=== PATIENT | male | born 1955 | race Caucasian/White ===

== ENCOUNTER 2019-09-20 07:44 | Day surgery (SDC) | payer OTHER ==
[2019-09-16 14:47] LABS: Absolute Lymphocytes (CBC) 2.8 K/uL (0.7-4.9); Basophils % 1.1 % (0-1.3); Hematocrit 47.9 % (39.6-49.0); Lymphocytes % 27.7 % (15.3-44.8); RBC Red Blood Cell Count 5.25 M/uL (4.33-5.43)
[2019-09-16 15:06] LABS: Potassium 4.6 mmol/L (3.5-5.1)
--- NOTE | 2019-09-16 15:35 | RAD REPORT ---
EXAM DESCRIPTION: Hellen Guerra And Kelly (2 Views)09/16/2019 3:06 pm CLINICAL HISTORY: Preop for cardiac catheterization. History chest pain COMPARISON: 2017 FINDINGS: The lungs appear clear of acute infiltrate. The heart is normal size IMPRESSION: No acute abnormalities displayed
[2019-09-20] MEDS ORDERED: NA CHLORIDE 0.9% 500 ML ONE (07:55)
[2019-09-20 08:08] VITALS: TEMP 97.7
[2019-09-20] MEDS ORDERED: NA CHLORIDE 0.9% 0 ML ONE (10:02)
[2019-09-20] MEDS ORDERED: FENTANYL CITR 100 MCG/2 ML ONE (10:02)
[2019-09-20] MEDS ORDERED: MIDAZOLAM HCL 2 MG/2 ML INJ ONE (10:02)
[2019-09-20] MEDS ORDERED: ATROPINE SULF 1 MG/10 ML SYR IV ONE (10:02)
[2019-09-20] MEDS ORDERED: HEPA 1000U/500MLS 1,000 UNIT/500 ML BAG IV ONE (10:04)
[2019-09-20 12:17] VITALS: BP 121/66
[2019-09-20 12:22] VITALS: O2SAT 99
== END 2019-09-20 12:30 | disposition home or self-care (01) ==
LOC: CCL 07:44
DX: I25.10 Atherosclerotic heart disease of native coronary artery without angina pectoris (principal); I10 Essential (primary) hypertension; E78.5 Hyperlipidemia, unspecified; F17.210 Nicotine dependence, cigarettes, uncomplicated; Z82.49 Family history of ischemic heart disease and other diseases of the circulatory system
CPT/HCPCS: 85025; 80048; 36415; 85610; 85730; 71046; 93454; C1893; C1760; J2250; J3010; J7040; J0583

== ENCOUNTER 2019-11-23 18:27 | Emergency (ER) | payer OTHER ==
[2019-11-23 19:48] LABS: Basophils % 1.2 % (0-1.3); Hematocrit 39.7 % (39.6-49.0); Lymphocytes % 37.3 % (15.3-44.8); MPV 8.8 fL (7.6-11.3); RBC Red Blood Cell Count 4.42 M/uL (4.33-5.43)
[2019-11-23 19:58] LABS: Albumin 3.5 g/dL (3.4-5.0); Bilirubin Direct 0.1 mg/dL (0-0.2); Bilirubin Total 0.3 mg/dL (0.2-1.0); Potassium 3.4 mmol/L (3.5-5.1); Protein, Total 7.4 g/dL (6.4-8.2)
--- NOTE | 2019-11-23 20:52 | ER ---
Nurse's Notes [facility] Name: Norman Carlson Age: 64 yrs Sex: Male : 1955 Arrival Date: 11/23/2019 Time: 18:29 Bed 4 Private MD: Ilia Barlow T Diagnosis: Abrasion of scrotum and testes Presentation: 11/22 18:55 Chief complaint: Patient states: blood on floor when he got out od shower, blood was iw coming from his scrotum/testicles, had recent heart cath in September. Coronavirus screen: At this time, the client does not indicate any symptoms associated with coronavirus-19. Ebola Screen: Patient negative for fever greater than or equal to 101.5 degrees Fahrenheit, and additional compatible Ebola Virus Disease symptoms Patient denies exposure to infectious person. Patient denies travel to an Ebola-affected area in the 21 days before illness onset. No symptoms or risks identified at this time. Initial Sepsis Screen: Does the patient meet any 2 criteria? No. Patient's initial sepsis screen is negative. Does the patient have a suspected source of infection? No. Patient's initial sepsis screen is negative. Risk Assessment: Do you want to hurt yourself or someone else? Patient reports no desire to harm self or others. Onset of symptoms was November 23, 2019. 18:55 Method Of Arrival: Ambulatory iw 18:55 Acuity: JEET 3 iw Historical: - Allergies: 18:59 No Known Allergies; iw - Home Meds: 18:59 rosuvastatin oral oral [Active]; zolpidem 10 mg Oral tab 1 tab once daily [Active]; iw - PMHx: 18:59 Hyperlipidemia; iw - PSHx: 18:59 eye; iw - Immunization history:: Adult Immunizations. - Social history:: Smoking status: Patient denies any tobacco usage or history of. Screenin:30 Abuse screen: Denies threats or abuse. Denies injuries from another. Nutritional sg screening: No deficits noted. Tuberculosis screening: No symptoms or risk factors identified. Never had TB. Fall Risk None identified. Assessment: 19:30 General: Appears in no apparent distress. well groomed, well developed, well nourished, sg Behavior is calm, cooperative, appropriate for age. Neuro: Level of Consciousness is awake, alert, obeys commands, Oriented to person, place, time, Speech is normal, Facial symmetry appears normal. Cardiovascular: Patient's skin is warm and dry. Chest pain is denied. Respiratory: Airway is patent Respiratory effort is even, unlabored, Respiratory pattern is regular, symmetrical. GI: Abdomen is round non-distended, Patient currently denies abdominal pain, nausea, vomiting. : Reports bleeding from scrotum Denies burning with urination, cramping discharge, inability to void, incontinence, pain urinary frequency, urgency. : Reports. EENT: No signs and/or symptoms were reported regarding the EENT system. Derm: Skin is pink, warm \T\ dry. Musculoskeletal: Circulation, motion, and sensation intact. Range of motion: intact in all extremities. Injury Description: denies mechanism of injury at this time. 21:29 Reassessment: Patient and/or family updated on plan of care and expected duration. Pain ea level reassessed. Patient is alert, oriented x 3, equal unlabored respirations, skin warm/dry/pink. Discharge instruction given to patient, verbalized the understanding of instruction. Pt left ED ambulatory tolerating well. Vital Signs: 18:55 BP 139 / 66; Pulse 65; Resp 16; Temp 98.7; Pulse Ox 100% on R/A; Weight 95.25 kg; iw Height 5 ft. 11 in. (180.34 cm); 21:00 BP 128 / 70; Pulse 60; Resp 18; Pulse Ox 98% on R/A; ea 18:55 Body Mass Index 29.29 (95.25 kg, 180.34 cm) iw ED Course: 18:29 Patient arrived in ED. ag5 18:29 Ilia Barlow MD is Private Physician. ag5 18:58 Triage completed. iw 18:59 Arm band placed on. iw 19:18 Santy Doherty MD is Attending Physician. tw4 19:26 Dillon Murray [facility]. cp 19:33 Initial lab(s) drawn, by me, sent to lab. Inserted saline lock: 20 gauge in left sg antecubital area, using aseptic technique. Blood collected. 19:38 Luis More, BETSY is Primary Nurse. sg 20:51 Ilia Barlow MD is Referral Physician. tw4 21:20 IV discontinued, intact, bleeding controlled, No redness/swelling at site. Pressure ea dressing applied. 21:29 No provider procedures requiring assistance completed. ea Administered Medications: No medications were administered Outcome: 20:52 Discharge ordered by MD. rojas : Discharged to home ambulatory. alee : Condition: stable 21:29 Discharge instructions given to patient, Instructed on discharge instructions, follow up and referral plans. Demonstrated understanding of instructions, follow-up care. 21:30 Patient left the ED. ea Signatures: Luis More RN Venus Dumont RN RN iw Page, Corey, PA PA cp Antunez, Elena, RN RN ea Wadley, Terrence, MD MD tw4 [place], [place] ag5
--- NOTE | 2019-11-23 20:52 | EDPHYS ---
Physician Documentation [facility] Name: Norman Carlson Age: 64 yrs Sex: Male : 1955 Arrival Date: 11/23/2019 Time: 18:29 Bed 4 Private MD: Ilia Barlow T ED Physician Santy Doherty HPI: 11/23 05:12 This 64 yrs old Male presents to ER via Ambulatory with complaints of Groin tw4 Pain, Testicular Problem. 05:12 The patient presents with bleeding abrasion from scrotum. Onset: The symptoms/episode tw4 began/occurred just prior to arrival. Modifying factors: The symptoms are alleviated by nothing, the symptoms are aggravated by nothing. The patient has not experienced similar symptoms in the past. Historical: - Allergies: 11/22 18:59 No Known Allergies; iw - Home Meds: 18:59 rosuvastatin oral oral [Active]; zolpidem 10 mg Oral tab 1 tab once daily [Active]; iw - PMHx: 18:59 Hyperlipidemia; iw - PSHx: 18:59 eye; iw - Immunization history:: Adult Immunizations. - Social history:: Smoking status: Patient denies any tobacco usage or history of. ROS: 11/23 05:12 Constitutional: Negative for fever, chills, and weight loss, Eyes: Negative for injury, tw4 pain, redness, and discharge, ENT: Negative for injury, pain, and discharge, Cardiovascular: Negative for chest pain, palpitations, and edema, Respiratory: Negative for shortness of breath, cough, wheezing, and pleuritic chest pain, Abdomen/GI: Negative for abdominal pain, nausea, vomiting, diarrhea, and constipation, Back: Negative for injury and pain. MS/Extremity: Negative for injury and deformity, Skin: Negative for injury, rash, and discoloration, Neuro: Negative for headache, weakness, numbness, tingling, and seizure. : Negative for burning with urination, difficulty urinating, bladder incontinence, foul smelling urine, penile discharge, penile pain, testicular pain Exam: 05:12 Constitutional: This is a well developed, well nourished patient who is awake, alert, tw4 and in no acute distress. Head/Face: Normocephalic, atraumatic. Chest/axilla: Normal chest wall appearance and motion. Nontender with no deformity. No lesions are appreciated. Cardiovascular: Regular rate and rhythm with a normal S1 and S2. No gallops, murmurs, or rubs. Normal PMI, no JVD. No pulse deficits. Respiratory: Lungs have equal breath sounds bilaterally, clear to auscultation and percussion. No rales, rhonchi or wheezes noted. No increased work of breathing, no retractions or nasal flaring. Abdomen/GI: Soft, non-tender, with normal bowel sounds. No distension or tympany. No guarding or rebound. No evidence of tenderness throughout. Back: No spinal tenderness. No costovertebral tenderness. Full range of motion. 05:12 : Male external genitalia: abrasion, small in size, of the left testicle. Vital Signs: 11/22 18:55 BP 139 / 66; Pulse 65; Resp 16; Temp 98.7; Pulse Ox 100% on R/A; Weight 95.25 kg; iw Height 5 ft. 11 in. (180.34 cm); 21:00 BP 128 / 70; Pulse 60; Resp 18; Pulse Ox 98% on R/A; ea 18:55 Body Mass Index 29.29 (95.25 kg, 180.34 cm) iw MDM: 19:18 Patient medically screened. tw4 11/23 05:12 Differential diagnosis: nonspecific abdominal pain, appendicitis. Data reviewed: vital tw4 signs, nurses notes. Data reviewed: lab test result(s), CBC, electrolytes, hepatic panel. Data interpreted: Pulse oximetry: Interpretation: normal. Counseling: I had a detailed discussion with the patient and/or guardian regarding: the historical points, exam findings, and any diagnostic results supporting the discharge/admit diagnosis. Special discussion: I discussed with the patient/guardian in detail that at this point there is no indication for admission to the hospital. It is understood, however, that if the symptoms persist or worsen the patient needs to return immediately for re-evaluation. 11/22 19:19 Order name: Basic Metabolic Panel; Complete Time: 20:42 tw4 11/22 20:43 Interpretation: Normal except: K 3.4; BUN 20; CL 109; GFR 77. tw4 11/22 19:19 Order name: CBC with Diff; Complete Time: 20:42 tw4 11/22 19:19 Order name: Hepatic Function; Complete Time: 20:42 tw4 11/22 19:19 Order name: Lipase; Complete Time: 20:42 tw4 11/22 19:19 Order name: IV Saline Lock; Complete Time: 19:34 tw4 11/22 19:19 Order name: Labs collected and sent; Complete Time: 19:34 tw4 Administered Medications: No medications were administered Disposition: 11/23/19 20:52 Discharged to Home. Impression: Abrasion of scrotum and testes. - Condition is Stable. - Discharge Instructions: Abrasion. - Medication Reconciliation Form, Thank You Letter, Antibiotic Education, Prescription Opioid Use form. - Follow up: Ilia Barlow MD; When: Upon discharge from the Emergency Department; Reason: Recheck today's complaints, Continuance of care, Re-evaluation by your physician. - Problem is new. - Symptoms have improved. Signatures: Dispatcher [employer] EDVenus Cotter RN RN iw Antunez, Elena, RN RN ea Wadley, Terrence, MD MD tw4 Corrections: (The following items were deleted from the chart) 11/22 21:30 20:52 11/23/2019 20:52 Discharged to Home. Impression: Abrasion of scrotum and testes. ea Condition is Stable. Forms are Medication Reconciliation Form, Thank You Letter, Antibiotic Education, Prescription Opioid Use. Follow up: Ilia Barlow; When: Upon discharge from the Emergency Department; Reason: Recheck today's complaints, Continuance of care, Re-evaluation by your physician. Problem is new. Symptoms have improved. tw4
[2019-11-23 21:35] VITALS: TEMP 98.7
[2019-11-23 21:36] VITALS: BP 128/70; O2SAT 98
== END 2019-11-23 21:30 | disposition home or self-care (01) ==
LOC: ER 18:27
DX: S30.813A Abrasion of scrotum and testes, initial encounter (principal); X58.XXXA Exposure to other specified factors, initial encounter; Y93.9 Activity, unspecified; Y92.9 Unspecified place or not applicable; E78.5 Hyperlipidemia, unspecified
CPT/HCPCS: 36415; 80048; 80076; 83690; 85025; 99283

== ENCOUNTER 2022-09-18 10:50 | Day surgery (SDC) | payer OTHER ==
[2022-09-15 11:04] LABS: Absolute Lymphocytes (CBC) 2.1 K/uL (0.7-4.9); Hematocrit 34.7 % (39.6-49.0); Lymphocytes % 32.8 % (15.3-44.8); MCV 90.3 fL (80-100); MPV 7.9 fL (7.6-11.3); RBC Red Blood Cell Count 3.84 M/uL (4.33-5.43)
--- NOTE | 2022-09-15 11:05 | RAD REPORT ---
EXAM DESCRIPTION: Hellen Blanco (2 Views)09/15/2022 10:35 am CLINICAL HISTORY: Preop coronary catheterization. Hypertension COMPARISON: 2019 FINDINGS: The lungs appear clear of acute infiltrate. The heart is normal size IMPRESSION: No acute abnormalities displayed
[2022-09-15 11:10] LABS: Protime INR 0.99
[2022-09-15 11:15] LABS: Potassium 4.1 mEq/L (3.5-5.1)
--- NOTE | 2022-09-16 07:12 | EKG ---
Test Date: 2022-09-15 Test Time: 10:35:32 [employer] Production Machine Operator: HILARY MEASUREMENT RESULTS: Intervals: Rate: 56 ME: 240 QRSD: 86 QT: 396 QTc: 382 [place]: P: -17 ME: 240 QRS: 15 T: 56 INTERPRETIVE STATEMENTS: Sinus bradycardia with 1st degree AV block Otherwise normal ECG No previous ECG available for comparison Electronically Signed On 09-16-22 07:12:05 CDT by Neil Romeo
[~2022-09-18 10:50] MED LIST: NA CHLORIDE 0.9% 500 ML ONE
[2022-09-18] MEDS ORDERED: LIDOCAINE 1% 20 ML MDV ONE (10:51)
[2022-09-18] MEDS ORDERED: HEPA 1000U/500MLS 2,000 UNIT/1,000 ML BAG IV ONE (10:51)
[2022-09-18] MEDS ORDERED: FENTANYL CITR 100 MCG/2 ML ONE (11:15)
[2022-09-18] MEDS ORDERED: ASPIRIN 325 MG TAB ONE (11:16)
[2022-09-18] MEDS ORDERED: HEPARIN 10,000 UNIT/10 ML VIAL IV ONE (11:16)
[2022-09-18] MEDS ORDERED: HEPARIN 5000 UNIT/ML 1 ML VIAL ONE (11:16)
[2022-09-18] MEDS ORDERED: VERAPAMIL HCL 10 MG/4 ML VIAL IV ONE (11:16)
[2022-09-18] MEDS ORDERED: CLOPIDOGREL 75 MG TABLET ONE (11:16)
[2022-09-18] MEDS ORDERED: MIDAZOLAM HCL 2 MG/2 ML INJ ONE (11:16)
[2022-09-18] MEDS ORDERED: TICAGRELOR 90 MG TABLET PO ONE (11:17)
[2022-09-18] MEDS ORDERED: ATROPINE SULF 1 MG/10 ML SYR IV ONE (11:17)
--- NOTE | 2022-09-18 12:25 | OP ---
Date of Procedure: 09/18/2022 Surgeon: PREETI ZHOU Procedures Performed: 1.Selective angiogram. 2.Left heart catheterization. Indication: Chest pain with abnormal stress test. Access: Right radial artery 6-Tristanian closed with TR band. Complications: None. Bleeding: Less than 20 mL. Description Of Procedure: After risks, benefits, alternatives were explained, the patient agreed to procedure and signed informed consent. [facility], prepped and draped in the usual sterile fashion. Then, I accessed right radial artery using pediatric micropuncture kit, placed 6-Tristanian Slender sheath and took catheter into the aortic root, e ngaged the left main and then took standard views and engaged RCA, took standard views and then the c atheter was pushed over the wire into the LV, measured the LVEDP and pullback did not record any grad ient. Then, the catheter was removed, sheath was removed, TR band was placed with good hemostasis. Findings: 1.Left main; normal. 2.LAD; normal. Some luminal irregularities distally. Normal diagonal branches. 3.Left circumflex; has a proximal to mid 20% to 30% other than that luminal regularities. 4.RCA is normal. 5.LVEDP borderline at 30 mmHg. Conclusion: 1.Mild nonobstructive coronary artery disease. 2.Slightly elevated LVEDP. Recommendation: Medical management. /HARPREET Voice ID: [id number] Report ID: [id number]
[2022-09-18 13:59] VITALS: BP 128/68; O2SAT 98
== END 2022-09-18 13:50 | disposition home or self-care (01) ==
LOC: CCL 10:50
PROVIDERS: ATTEND Internal Medicine
DX: I25.10 Atherosclerotic heart disease of native coronary artery without angina pectoris (principal); I10 Essential (primary) hypertension; I44.7 Left bundle-branch block, unspecified; E78.5 Hyperlipidemia, unspecified; Z87.891 Personal history of nicotine dependence; Z79.899 Other long term (current) drug therapy
CPT/HCPCS: 93005; 85025; 80048; 36415; 85610; 85730; 71046; 93458; 76937; C1893; Q9966; J1644; J2001; J2250; J3010; J7040; J0461